=== PATIENT | male | born 1930 | race Caucasian/White ===

== ENCOUNTER → 2017-05-08 | Outpatient (CLI) | payer MEDICARE, BC ==
--- NOTE | 2017-05-08 17:48 | CONS ---
CONSULTATION REASON FOR CONSULTATION: Sleep apnea. Daytime drowsiness. HISTORY OF PRESENT ILLNESS: 87-year-old male patient, known history of obstructive sleep apnea. Diagnosis established back in 2010 under the care of Dr. Heard. The patient was subsequently given a BiPAP at a pressure of 13/9 cm of water. He has been utilizing the treatment for the past 7 years. His CPAP machine currently is not working. The patient is coming in and his main request is to get himself a new machine so he can continue with the treatment. For now, he is snoring and he is having difficulty with breathing especially at night time and getting apneas throughout the night. He is waking up tired and fatigued during the day. He goes to bed between 830-10 p.m. and wakes up at 8:00 am in the morning. He is waking up non refreshed. He is feeling sleepy throughout the day. He is using a Comfort Gel nose mask. I checked his compliance rate on the CPAP machine. He is having considerable amount of leaks around the mask and his AHI while on treatment is down to 8. No recent weight gain or weight loss. PAST MEDICAL HISTORY: Obesity, obstructive sleep apnea, chronic atrial fibrillation. Dementia, diabetes mellitus type 2, hyperlipidemia, hypertension, prostate enlargement and osteoarthritis. SURGICAL HISTORY: Includes back surgery, left knee replacement, cardioversion, bilateral inguinal hernia repair. Laminectomy and bilateral cataract surgery. DRUG ALLERGIES: Not known. OUTPATIENT MEDICATION LIST: Includes: 1. Warfarin 10 mg half a tablet a day. 2. Lipitor 20 mg p.o. daily. 3. Aricept 10 mg p.o. daily. 4. Terazosin 10 mg twice a day. 5. Lasix 20 mg p.o. daily. 6. Citalopram 20 mg p.o. daily. 7. Synthroid 150 mcg p.o. daily. 8. Lisinopril 5 mg p.o. daily. 9. Metformin 1 g twice a day. 10.Zantac as needed. 11.Vitamin D3 1000 units daily. 12.[place] Q Plus 1 tab twice a day. SOCIAL HISTORY: The patient is a nonsmoker for now. Smoked 45 pack years and quit smoking in 1987. Lives independently. No history of alcohol and no history of IV drugs. ALLERGIES: Drug allergies are not known. FAMILY HISTORY: Negative for any for sleep apnea. Negative for narcolepsy. REVIEW OF SYSTEMS: A 12-point review of system was done. Positive findings are mentioned above in the history of present illness. Note that the patient has an underlying dementia and his history providing skills are somewhat suboptimal at this point. Neurological: He is forgetful and he is having some memory problems with short-term memory. Head and neck: No neck pain. He has visual impairments, hearing impairment and loud snoring. PULMONARY: Chronic exertional dyspnea. Occasional cough without any significant sputum production. Pulmonary and cardiovascular: No angina. No palpitations. He has chronic atrial fibrillation. GI: Negative for nausea, vomiting or abdominal pain. No GI bleed. : Symptoms for prostatism. No dysuria, frequency or urgency. Musculoskeletal: Chronic back pain. No falls. No injuries. Skin negative for wounds or cellulitis. Psychiatric negative for anxiety or depression at this point in time. His current vitals: Blood pressure is 151/58, pulse 53, respirations 16, temperature 98.2, saturation 97% on room air. Weight is 282. Height is 5 feet 7 inches. Neck size 20 inches. [place] score 3, BMI is 44.1. General appearance: Obese, calm and comfortable. Head was atraumatic , normocephalic. Neck short supple neck. Crowded posterior pharynx. Mallampati class IV. LUNGS: Diminished breath sounds in the lung base bilaterally. HEART: Sounds are irregular. Positive S1, S2. ABDOMEN: Soft, nontender. No organomegaly. Organs cannot be adequately palpated. Extremities trace edema. There is no cyanosis or clubbing. NEUROLOGIC: Alert and oriented x 2. Poor short-term memory. No focal neurological deficits. PSYCHIATRIC: Negative for anxiety or depression. SKIN: Negative for any open wounds or cellulitis. IMPRESSION: 1. Severe obstructive sleep apnea treated with a BiPAP pressure of 13/9 cm of water. The patient does not have adequately functioning BiPAP and he wants a new machine ordered for him. Based on the compliance data the patient is very compliant to his machine however he is leaking extensively around the mask and his AHI while on treatment is down to 8. Ideally a another BiPAP titration will be indicated. However the patient based on his age and comorbidities opted not to. For that reason, I ordered a BiPAP machine with the same setting. I would like to give him a VPAP unit should we decide to go with an automatic mode at a later stage. We will set the pressure of 15/9 and he will be fitted with appropriate mask medications to prevent all these ongoing leaks. 2. Encourage weight loss. 3. Tight control of cardiovascular risk factors. 4. We will continue to follow and make further recommendations based on his overall clinical progress. The patient will see me back in 30-90 days after he obtains his new machine for a compliancy followup and recheck. ROMARIO / HOOD: [id number] / [id number]
== END | disposition home or self-care (01) ==
LOC: SLEEP 15:46
PROVIDERS: ATTEND Internal Medicine Critical Care Medicine
DX: G47.33 Obstructive sleep apnea (adult) (pediatric) (principal); E66.9 Obesity, unspecified; I48.2 Chronic atrial fibrillation; F03.90 Unspecified dementia, unspecified severity, without behavioral disturbance, psychotic disturbance, mood disturbance, and anxiety; E11.9 Type 2 diabetes mellitus without complications; E78.5 Hyperlipidemia, unspecified; I10 Essential (primary) hypertension; N40.0 Benign prostatic hyperplasia without lower urinary tract symptoms; M19.90 Unspecified osteoarthritis, unspecified site; Z79.01 Long term (current) use of anticoagulants; Z79.899 Other long term (current) drug therapy; Z79.84 Long term (current) use of oral hypoglycemic drugs; Z87.891 Personal history of nicotine dependence; Z99.89 Dependence on other enabling machines and devices
CPT/HCPCS: 99211

== ENCOUNTER → 2017-06-07 | Outpatient (CLI) | payer MEDICARE, BC ==
[2017-06-07 11:26] LABS: INR 1.1 (<1.2); Prothrombin Time 10.8 sec (9.0-12.0)
== END | disposition home or self-care (01) ==
LOC: LABWHC1 10:27
PROVIDERS: ATTEND Dentist Oral and Maxillofacial Surgery
DX: D68.9 Coagulation defect, unspecified (principal)
CPT/HCPCS: 36415; 85610

== ENCOUNTER → 2017-06-13 | Outpatient (CLI) | payer MEDICARE, BC ==
[2017-06-13 14:23] LABS: INR 1.1 (<1.2); Prothrombin Time 10.7 sec (9.0-12.0)
== END | disposition home or self-care (01) ==
LOC: LABWHC1 13:39
PROVIDERS: ATTEND Family Medicine
DX: Z51.81 Encounter for therapeutic drug level monitoring (principal); Z79.01 Long term (current) use of anticoagulants
CPT/HCPCS: 36415; 85610